=== PATIENT | male | born 1980 | race Two or more races ===

== ENCOUNTER 2022-09-08 14:32 | Emergency (ER) | payer OTHER, SELFPAY ==
--- NOTE | ~2022-09-08 | CT_ITS ---
EXAMINATION: CT abdomen and pelvis without IV contrast CLINICAL INFORMATION: Abdominal pain, vomiting. COMPARISON: No pertinent prior studies are available for comparison. TECHNIQUE: Multidetector volumetric imaging was performed of the abdomen and pelvis without IV contrast. Sagittal and coronal reformatted images were obtained on the technologist's workstation. This CT examination was performed using dose optimization techniques as appropriate, variously including the following: *Automated exposure control *Adjustment of mA and/or kV according to patient size (this includes techniques or standardized protocols for targeted exams where dose is matched to indication/reason for exam; i.e. extremities or head) *Use of iterative reconstruction technique DLP: 393 mGy-cm FINDINGS: Lung bases: No focal consolidation or pleural effusion. Liver, Gallbladder, Biliary Tree: Limited noncontrast examination of the liver which appears normal in size, shape and attenuation without discrete focal lesion. No evidence of cholelithiasis or inflammatory changes to suspect acute cholecystitis. No biliary ductal dilatation. Pancreas: Limited noncontrast examination, unremarkable. Spleen: Limited noncontrast examination, unremarkable. Adrenal Glands: No adrenal mass. Kidneys and Ureters: Limited noncontrast examination. No nephrolithiasis or hydronephrosis. No perinephric fat stranding. Bladder: Unremarkable. Gastrointestinal Tract: The stomach and the small bowel are nondilated. Normal appendix. No pericolonic inflammatory changes to suspect acute colitis or diverticulitis. No evidence of bowel obstruction. Moderate amount of stool content in the colon and rectum. Abdominal Wall: No significant hernia is appreciated. Lymphovascular Structures: Evaluation of lymph nodes is limited in the absence of IV contrast and paucity of abdominal fat. No bulky lymphadenopathy noted. The abdominal aorta is normal in caliber. Pelvic Viscera: Unremarkable. Osseous Structures: L4 and L5 limbus vertebrae. Vacuum disc phenomena at L3-L4. Degenerative changes of the spine. No acute or aggressive appearing osseous abnormalities. CT/CT abdomen wo IV con IMPRESSION: 1. No acute abdominal or pelvic abnormalities to explain the patient's symptoms. 2. Moderate amount of stool content suggesting constipation.
--- NOTE | ~2022-09-08 | CT_ITS ---
EXAMINATION: CT HEAD WITHOUT CONTRAST CT CERVICAL SPINE WITHOUT CONTRAST CLINICAL INFORMATION: Trauma. COMPARISON: None TECHNIQUE: Contiguous axial imaging was performed from the skull base to vertex without intravenous administration of contrast. Contiguous axial imaging was performed from the upper chest through the skull base without intravenous administration of contrast. Coronal and sagittal reformats were obtained at the acquisition workstation. This CT examination was performed using dose optimization techniques as appropriate, variously including the following: *Automated exposure control *Adjustment of mA and/or kV according to patient size (this includes techniques or standardized protocols for targeted exams where dose is matched to indication/reason for exam; i.e. extremities or head) *Use of iterative reconstruction technique DLP: 634 and 407 mGy-cm FINDINGS: Head: There is no evidence of acute intracranial hemorrhage or edematous territorial infarction. There is no abnormal attenuation within the brain parenchyma. Wilkerson-white matter differentiation is preserved. The ventricles are normal in size and configuration. No evidence for obstructive hydrocephalus. No abnormal mass effect or midline shift. No extra-axial fluid collections. Small right occipital scalp hematoma. No calvarial fracture. The mastoid air cells and paranasal sinuses are clear. Cervical Spine: The atlantooccipital and atlantoaxial articulations remain well aligned. Straightening of the normal cervical lordosis. Otherwise, there is anatomic alignment of the vertebral bodies and posterior elements. No evidence of acute fracture or subluxation. Multilevel cervical spondylosis. There is no prevertebral soft tissue swelling. The thyroid gland and remaining cervical soft tissues are normal in appearance. Subtle biapical subpleural blebs.. CT/CT cervical spine wo IV con IMPRESSION: 1. Small right occipital scalp hematoma. 2. No acute intracranial pathology. 3. No acute cervical spinal fractures or malalignment.
[2022-09-08 15:16] VITALS: BP 127/86; PULSE 88; RESP 18; TEMP 36.6; O2SAT 98; BMI 25.0
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
--- NOTE | 2022-09-08 16:10 | PC.NURSE ---
pt changed over to hospital attire, belongings placed in decon by security. pt ambuatory to exam room, speaking in full sentances- sts that he doesnt feel good sts he is having nausea, but not vomitting at this time, pt sts he feels a little shaky stated to author that he has been aware for at least the last 2 days. placed saltines, gingerale and sandwich at bedside as pt sts he has not eaten in the last few days either
--- NOTE | 2022-09-08 16:26 | ECG_ITS ---
Test Reason : COCAINE USE Blood Pressure : / mmHG Vent. Rate : 077 BPM Atrial Rate : 077 BPM P-R Int : 152 ms QRS Dur : 092 ms QT Int : 372 ms P-R-T Axes : 078 081 068 degrees QTc Int : 420 ms Normal sinus rhythm Normal ECG No previous ECGs available Referred By: Anoop Chisholm Electronically Signed By:SONA MARQUEZ MD
[2022-09-08 16:41] LABS: MANUAL DIFF FLAG NO
[2022-09-08] MEDS: 0.9 % Sodium Chloride 1,000 ML 999 ML IVCONT (16:41)
[2022-09-08] MEDS: ondansetron HCL 4 MG/2 ML VIAL IVPUSH (16:42)
[2022-09-08] MEDS: Ketorolac Tromethamine 15 MG/ML VIAL IVPUSH (16:43)
[2022-09-08 16:46] LABS: Basophils Percent Auto 0.5 % (0-2); Eosinophils Absolute Auto 0.1 X10*3/uL (0.0-0.4); Eosinophils Percent Auto 1.2 % (0-4); Hematocrit 42.2 % (42.0-52.0); Hemoglobin 14.2 g/dl (14.0-18.0); Imm Gran Abs Auto 0.02 X10*3/uL (0.00-0.03); Imm Gran Pct Auto 0.2 % (0.0-0.4); Lymphocytes Absolute Auto 1.9 X10*3/uL (1.2-4.9); Lymphocytes Percent Auto 23.4 % (20-40); Mean Corpuscular HGB Conc 33.6 g/dl (31.0-36.0); Mean Corpuscular Hemoglobin 28.8 pg (27.0-33.0); Mean Corpuscular Volume 85.6 fL (80.0-98.0); Mean Platelet Volume 8.8 fL (9.4-12.4); Monocytes Absolute Auto 0.7 X10*3/uL (0.1-1.2); Monocytes Percent Auto 9.1 % (2-11); Neutrophils Absolute Auto 5.3 x10*3/uL (2.0-8.3); Neutrophils Percent Auto 65.6 % (45-73); Platelet Count 276 X10*3/uL (160-400); Red Blood Count 4.93 X10*6/uL (4.60-5.80); White Blood Count 8.1 X10*3/uL (4.8-10.8)
[2022-09-08 17:03] LABS: Alanine Aminotransferase 17 U/L (0-40); Albumin Level 4.6 g/dL (3.5-5.0); Alkaline Phosphatase 55 U/L (39-117); Anion Gap 12 (12-20); Aspartate Amino Transferase 27 U/L (5-37); Bilirubin Direct < 0.2 mg/dL (0.0-0.5); Bilirubin Total 0.5 mg/dL (0.0-1.0); Blood Urea Nitrogen 14 mg/dL (9-16); Calcium 9.6 mg/dL (8.4-10.2); Carbon Dioxide 27 mmol/L (22-29); Chloride 104 mmol/L (96-108); Estimated Glomerular Filt Rate > 60; Glucose Random 82 mg/dL (60-115); Lipase 23 U/L (8-78); Potassium 4.1 mmol/L (3.3-5.1); Sodium 139 mmol/L (135-145)
[2022-09-08 17:11] LABS: Troponin-I High Sensitivity < 2.7 ng/L (<3.5-35.0)
--- NOTE | 2022-09-08 17:23 | MHC.RECOVSUP ---
? Reason for consult:Recovery Support o Current location: [facility]? o Identified substance use concern: AUD? ? 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
[2022-09-08 18:29] LABS: Appearance Urine Clear; Color Urine Yellow; Glucose Urine UA Negative (Negative); Leukocyte Esterase Urine Negative (Negative); Nitrite Urine Negative (Negative); PH 7.5 (5.0-9.0); UMIC TRIGGER UACC YES; Urine Blood Trace (Negative); Urine Ketones Negative (Negative); Urine Protein Negative (Neg-Trace)
[2022-09-08 18:42] LABS: Bacteria Urine None Seen (None Seen); Hyaline Casts Urine 0-2 /LPF (0-2); RBC Urine 0-2 /HPF (0-2); Squamous Epithelial Cell Urine 0-2 /HPF (0-2); WBC Urine 0-5 /HPF (0-5)
[2022-09-08 19:14] LABS: Ethanol < 10 mg/dL
[2022-09-08 19:15] LABS: Amphetamine Screen Urine Not Detected (Not Detect); Barbiturates, Urine Not Detected (Not Detect); Benzodiazepines Screen Urine Not Detected (Not Detect); Cannabinoid Screen Urine POSITIVE (Not Detect); Cocaine Screen Urine POSITIVE (Not Detect); Fentanyl, urine Not Detected (Not Detect); Opiate Screen Urine Not Detected (Not Detect); Phencyclidine Screen Urine Not Detected (Not Detect)
--- NOTE | 2022-09-08 19:56 | PC.NURSE ---
pt awaiting CT scan of head. pt is currently sleeping, respirations even and unlabored, call shankar within reach- [facility]
[2022-09-08 21:22] VITALS: BP 105/67; PULSE 68; RESP 18; O2SAT 98
--- NOTE | 2022-09-08 22:42 | PC.NURSE ---
pt continues as a patient in dept, no new orders at this time. this nurse was able to wake pt easily, stated to author that he is feeling better. sts that he does have someone that he can call for a ride if deemed safe for discharge. call shankar within reach
--- NOTE | 2022-09-08 22:54 | PC.NURSE ---
report given to charge nurse- awaiting d/c
[2022-09-09 00:09] VITALS: BP 101/59; PULSE 61; RESP 19; TEMP 36.5; O2SAT 96
== END 2022-09-09 00:20 | disposition home or self-care (01) ==
PROVIDERS: Physician Assistant Medical; Emergency Provider Internal Medicine
DX: F14.19 Cocaine abuse with unspecified cocaine-induced disorder (principal); R11.0 Nausea; R51.9 Headache, unspecified; M54.2 Cervicalgia; R94.31 Abnormal electrocardiogram [ECG] [EKG]; F10.10 Alcohol abuse, uncomplicated; Y90.0 Blood alcohol level of less than 20 mg/100 ml; Z79.899 Other long term (current) drug therapy
CPT/HCPCS: 36415; 70450; 72125; 74150; 80048; 80076; 80307; 81001; 82077; 83690; 84484; 85025; 93005; 96361; 96374; 96375; 99285; J1885; J2405